=== PATIENT | male | born 1955 | race Caucasian/White ===

== ENCOUNTER 2017-11-14 16:44 | Inpatient (IN) | payer MEDICAID, OTHER ==
[~2017-11-14] VITALS: Ht 172.7 cm; Wt 70.3 kg
[2017-11-14 18:56] LABS: Hemoglobin 13.7 g/dL (13.5-17.5); White Blood Cell 3.2 10^3/uL (4.4-10.8)
[2017-11-14 18:58] LABS: Hematocrit 40.9 % (41.0-53.0); Mean Corpuscular Hemoglobin 26.6 pg (28.0-32.0); Mean Corpuscular Hgb Conc. 33.5 g/dL (32.0-36.0); Mean Corpuscular Volume 79.4 fL (80.0-100.0); Platelet Count (auto) 194 10^3/uL (140-450); Red Blood Cells 5.16 10^6/uL (4.5-5.90); Red Cell Distribution Width 17.1 % (11.8-14.3)
[2017-11-14 19:11] LABS: Alanine Aminotransferase 28 U/L (16-61); Albumin 3.5 g/dL (3.4-5.0); Anion Gap 9 (5-15); Aspartate Aminotransferase 48 U/L (15-37); BUN/Creatinine Ratio 13.5; Band Neutrophils % (manual) 0; Basophils % (manual) 0 (0.0-2.0); Blast Cells 0; Blood Urea Nitrogen 15 mg/dL (7-18); Calcium 8.4 mg/dL (8.5-10.1); Carbon Dioxide 24 mmol/L (21-32); Chloride 101 mmol/L (98-107); Eosinophils % (manual) 0 (0-7); GFR African American 87 mL/min; GFR Non-African American 72 mL/min; Glucose 158 mg/dL (74-106); Magnesium 2.5 mg/dL (1.6-2.6); Metamyelocytes % 0; Myelocytes % 0; Potassium 3.5 mmol/L (3.5-5.1); Promyelocytes % 0; Reactive Lymphocytes 0; Sodium 134 mmol/L (136-145)
[2017-11-14 19:16] LABS: Alkaline Phosphatase 98 U/L (45-117); Bilirubin, Total 0.5 mg/dL (0.2-1.0); Total Protein 7.7 g/dL (6.4-8.2)
[2017-11-14 21:38] LABS: Lymphocytes % (manual) 43 (10.0-50.0); Monocytes % (manual) 21 (0-12)
[2017-11-15] MEDS ORDERED: ACETAMINOPHEN 500 MG TAB PO PRN (04:45)
[2017-11-15] MEDS ORDERED: ONDANSETRON HCL 4 MG/2 ML VIAL IV PRN (04:45)
[2017-11-15] MEDS ORDERED: DEXTROSE (50%) 50ML SYRG IV PRN (07:30)
[2017-11-15 09:27] LABS: Basophils # (auto) 0.1 uL; Eosinophils # (auto) 0 uL; Lymphocytes # (auto) 1.3 uL; Monocytes # (auto) 0.7 uL; Neutrophils # (auto) 5.1 uL; White Blood Cell 7.2 10^3/uL (4.4-10.8)
[2017-11-15 09:29] LABS: Hemoglobin 14.4 g/dL (13.5-17.5); Lymphocytes % (auto) 18.4 % (10.0-50.0); Mean Corpuscular Hemoglobin 26.9 pg (28.0-32.0); Mean Corpuscular Hgb Conc. 34.2 g/dL (32.0-36.0); Mean Corpuscular Volume 78.6 fL (80.0-100.0); Monocytes % (auto) 9.7 % (0.0-12.0); Neutrophils % (auto) 70.9 % (37.0-80.0); Nucleated Red Blood Cells % 0.1 %; Platelet Count (auto) 192 10^3/uL (140-450); Red Blood Cells 5.34 10^6/uL (4.5-5.90); Red Cell Distribution Width 16.9 % (11.8-14.3)
[2017-11-15] MEDS: ASPirin-EC 81 mg tab PO SCH (10:00)
[2017-11-15] MEDS: LISINOPRIL 5 MG TAB PO SCH (10:00)
[2017-11-15 10:11] LABS: BUN/Creatinine Ratio 15.7; Calcium 8.5 mg/dL (8.5-10.1); Potassium 3.9 mmol/L (3.5-5.1)
[2017-11-15] MEDS: InsuLIN REG 1unit/0.01ml Soln (100units/ml) SC SCH ×3 (12:00→21:58)
[2017-11-15] MEDS: ACCU-CHEK COMFORT CURVE STRIP VI SCH ×3 (12:08→21:58)
[2017-11-15 14:25] VITALS: BP 140/81
[2017-11-15 16:18] VITALS: BP 140/81
[2017-11-15] MEDS ORDERED: INFLUENZA QUAD 2017-2018 0.5 ML SYRG IM ONE (16:30)
[2017-11-15] MEDS ORDERED: PNEUMOCOCCAL VACC POLYS 25 MCG/0.5 ML VIAL IM ONE (16:30)
[2017-11-15] MEDS: HYDROcodone-ACET 5/325MG TAB PO PRN (16:34)
[2017-11-15 16:48] VITALS: BP 136/59
[2017-11-15] MEDS: ATORVASTATIN 20 MG TAB PO SCH (21:58)
[2017-11-15 22:00] VITALS: BP 128/71
[2017-11-16 05:00] VITALS: BP 149/103
[2017-11-16] MEDS: ACCU-CHEK COMFORT CURVE STRIP VI SCH ×4 (06:16→22:15)
[2017-11-16] MEDS: InsuLIN REG 1unit/0.01ml Soln (100units/ml) SC SCH ×4 (06:16→22:15)
[2017-11-16 08:37] VITALS: BP 138/74
[2017-11-16] MEDS: ASPirin-EC 81 mg tab PO SCH (10:48)
[2017-11-16] MEDS: LISINOPRIL 5 MG TAB PO SCH (10:49)
[2017-11-16 17:12] VITALS: BP 149/77
[2017-11-16] MEDS: ATORVASTATIN 20 MG TAB PO SCH (22:14)
[2017-11-17] MEDS: HYDROcodone-ACET 5/325MG TAB PO PRN ×2 (00:21→18:10)
[2017-11-17 05:15] VITALS: BP 116/64
[2017-11-17] MEDS: ACCU-CHEK COMFORT CURVE STRIP VI SCH ×4 (06:33→22:08)
[2017-11-17] MEDS: InsuLIN REG 1unit/0.01ml Soln (100units/ml) SC SCH ×4 (06:33→22:00)
[2017-11-17 08:49] LABS: Urine Blood Negative /uL (Negative)
[2017-11-17 08:51] LABS: Urine Bacteria None Seen /hpf (None Seen); Urine WBC None Seen /hpf (0 - 3)
[2017-11-17 09:00] VITALS: BP 133/74
[2017-11-17] MEDS: ASPirin-EC 81 mg tab PO SCH (09:48)
[2017-11-17] MEDS: LISINOPRIL 5 MG TAB PO SCH (09:49)
[2017-11-17 13:00] VITALS: BP 133/75
[2017-11-17 18:39] VITALS: BP 144/74
[2017-11-17] MEDS ORDERED: LORazepam 2MG/ML-1ML VIAL IV PRN (18:45)
[2017-11-17 22:00] VITALS: BP 135/82
[2017-11-17] MEDS: ATORVASTATIN 20 MG TAB PO SCH (22:08)
[2017-11-18 05:18] VITALS: BP 135/75
[2017-11-18] MEDS: InsuLIN REG 1unit/0.01ml Soln (100units/ml) SC SCH ×4 (06:19→21:04)
[2017-11-18] MEDS: ACCU-CHEK COMFORT CURVE STRIP VI SCH ×4 (06:19→21:04)
[2017-11-18 09:00] VITALS: BP 133/57
[2017-11-18] MEDS: ASPirin-EC 81 mg tab PO SCH (11:52)
[2017-11-18] MEDS: LISINOPRIL 5 MG TAB PO SCH (11:53)
[2017-11-18 13:00] VITALS: BP 147/75
[2017-11-18 17:00] VITALS: BP 129/71
[2017-11-18] MEDS: ATORVASTATIN 20 MG TAB PO SCH (21:05)
[2017-11-18 22:00] VITALS: BP 136/71
[2017-11-18] MEDS ORDERED: TEMAZEPAM 15 MG CAP PO ONE (23:00)
[2017-11-19 05:00] VITALS: BP 141/72
[2017-11-19 06:24] LABS: Cholesterol 153 mg/dL (< 200); HDL Cholesterol 29 mg/dL (40-59); LDL Cholesterol 106 mg/dL (< 100); Triglycerides 157 mg/dL (< 150)
[2017-11-19 09:00] VITALS: BP 141/76
[2017-11-19] MEDS: ASPirin-EC 81 mg tab PO SCH (11:22)
[2017-11-19] MEDS: LISINOPRIL 5 MG TAB PO SCH (11:23)
[2017-11-19] MEDS: ACCU-CHEK COMFORT CURVE STRIP VI SCH (11:29)
[2017-11-19] MEDS: InsuLIN REG 1unit/0.01ml Soln (100units/ml) SC SCH (11:30)
[2017-11-19 12:43] VITALS: BP 141/76
[2017-11-19 13:00] VITALS: BP 138/74
[2017-11-19 13:13] VITALS: BP 138/74
[2017-11-19 17:00] VITALS: BP 126/71
== END 2017-11-19 19:50 | disposition home or self-care (01) | DRG 45 ==
LOC: ER 16:44 → OVERFLOW 16:47 → WEST WING 11-15 13:59
PROVIDERS: ADMIT Nurse Practitioner Family; ATTEND Internal Medicine
DX: I63.9 Cerebral infarction, unspecified (principal); E11.21 Type 2 diabetes mellitus with diabetic nephropathy; E11.65 Type 2 diabetes mellitus with hyperglycemia; N18.2 Chronic kidney disease, stage 2 (mild); I12.9 Hypertensive chronic kidney disease with stage 1 through stage 4 chronic kidney disease, or unspecified chronic kidney disease; E87.1 Hypo-osmolality and hyponatremia; G81.94 Hemiplegia, unspecified affecting left nondominant side; E11.22 Type 2 diabetes mellitus with diabetic chronic kidney disease; E78.5 Hyperlipidemia, unspecified; Z79.82 Long term (current) use of aspirin; Z79.899 Other long term (current) drug therapy; Z87.891 Personal history of nicotine dependence; Z82.49 Family history of ischemic heart disease and other diseases of the circulatory system; Z83.3 Family history of diabetes mellitus; Z23 Encounter for immunization
CPT/HCPCS: 36415; 70450; 70551; 71046; 80048; 80053; 80061; 81001; 82962; 83036; 83735; 84484; 85007; 85025; 85027; 85379; 93005; 93306; 93886; 93971; 97163; J1815

== ENCOUNTER 2021-07-09 17:57 | Inpatient (IN) | payer MEDICARE, MEDICAID ==
[~2021-07-09] VITALS: Ht 175.3 cm; Wt 78.0 kg
[2021-07-09 20:01] LABS: Basophils # (auto) 0.1 10 ^3/uL (0-0.2); Basophils % (auto) 1.2 % (0.0-2.0); Eosinophils # (auto) 0 10 ^3/uL (0-0.8); Eosinophils % (auto) 0.4 % (0.0-7.0); Hematocrit 42.9 % (41.0-53.0); Hemoglobin 14.3 g/dL (13.5-17.5); Lymphocytes # (auto) 1.2 10 ^3/uL (0.4-5.4); Lymphocytes % (auto) 27.9 % (10.0-50.0); Mean Corpuscular Hemoglobin 27.8 pg (28.0-32.0); Mean Corpuscular Hgb Conc. 33.3 g/dL (32.0-36.0); Mean Corpuscular Volume 83.4 fL (80.0-100.0); Monocytes # (auto) 0.7 10 ^3/uL (0-1.3); Monocytes % (auto) 17.7 % (0.0-12.0); Neutrophils # (auto) 2.2 10 ^3/uL (1.6-8.6); Neutrophils % (auto) 52.8 % (37.0-80.0); Nucleated Red Blood Cells % 0.1 %; Red Blood Cells 5.14 10^6/uL (4.5-5.90); Red Cell Distribution Width 15.2 % (11.8-14.3); White Blood Cell 4.2 10^3/uL (4.4-10.8)
[2021-07-09 20:17] LABS: Chloride 108 mmol/L (98-107); Potassium 3.5 mmol/L (3.5-5.1); Sodium 138 mmol/L (136-145)
[2021-07-09 20:22] LABS: Alanine Aminotransferase 41 U/L (16-61); Albumin 3.7 g/dL (3.4-5.0); Anion Gap 7 (5-15); Aspartate Aminotransferase 20 U/L (15-37); BUN/Creatinine Ratio 21.1; Blood Urea Nitrogen 27 mg/dL (7-18); Calcium 8.4 mg/dL (8.5-10.1); Carbon Dioxide 23 mmol/L (21-32); GFR African American 73 mL/min; GFR Non-African American 60 mL/min; Glucose 69 mg/dL (74-106)
[2021-07-09 20:26] LABS: Alkaline Phosphatase 65 U/L (45-117); Bilirubin, Total 0.3 mg/dL (0.2-1.0)
[2021-07-09] MEDS ORDERED: ACETAMINOPHEN 500 MG TAB PO ONE (20:45)
[2021-07-09 23:17] LABS: Urine Bacteria MOD /hpf (None Seen); Urine Blood Negative /uL (Negative); Urine Mucus FEW (None Seen); Urine Specific Gravity 1.024 (1.001-1.035); Urine Sperm PRESENT /hpf (None Seen); Urine WBC 43 /hpf (0 - 3)
[2021-07-10] MEDS ORDERED: IOHEXOL 350 MG/ML 100ML IJ ONE (02:12)
[2021-07-10] MEDS ORDERED: cefTRIAXone 1GM/50ML D5W 50 ML IV ONE (02:15)
[2021-07-10] MEDS ORDERED: ONDANSETRON HCL 4 MG/2 ML VIAL IV PRN (05:00)
[2021-07-10] MEDS: PANTOPRAZOLE 40 MG TAB PO SCH (08:18)
[2021-07-10] MEDS: ENOXAPARIN SOD 40 MG/0.4 ML SYRINGE SC SCH (08:18)
[2021-07-10] MEDS: TEMAZEPAM 15 MG CAP PO PRN (20:40)
[2021-07-10] MEDS: cefTRIAXone 1GM/50ML D5W 50 ML IV SCH (20:40)
[2021-07-10] MEDS: ACETAMINOPHEN 325 MG TAB PO PRN (20:41)
[2021-07-10 22:00] VITALS: BP 140/63
[2021-07-11 07:28] LABS: Basophils # (auto) 0.1 10 ^3/uL (0-0.2); Basophils % (auto) 1.3 % (0.0-2.0); Eosinophils # (auto) 0.1 10 ^3/uL (0-0.8); Eosinophils % (auto) 2.1 % (0.0-7.0); Hematocrit 43.8 % (41.0-53.0); Hemoglobin 14.6 g/dL (13.5-17.5); Lymphocytes # (auto) 1.6 10 ^3/uL (0.4-5.4); Lymphocytes % (auto) 41.5 % (10.0-50.0); Mean Corpuscular Hemoglobin 28.3 pg (28.0-32.0); Mean Corpuscular Hgb Conc. 33.5 g/dL (32.0-36.0); Mean Corpuscular Volume 84.5 fL (80.0-100.0); Monocytes # (auto) 0.6 10 ^3/uL (0-1.3); Monocytes % (auto) 14.8 % (0.0-12.0); Neutrophils # (auto) 1.5 10 ^3/uL (1.6-8.6); Neutrophils % (auto) 40.3 % (37.0-80.0); Nucleated Red Blood Cells % 0.2 %; Red Blood Cells 5.18 10^6/uL (4.5-5.90); White Blood Cell 3.8 10^3/uL (4.4-10.8)
[2021-07-11 08:18] LABS: Potassium 4.1 mmol/L (3.5-5.1)
[2021-07-11 08:44] LABS: Albumin 3.1 g/dL (3.4-5.0); BUN/Creatinine Ratio 19.8; Calcium 8.5 mg/dL (8.5-10.1)
[2021-07-11 08:50] LABS: Bilirubin, Total 0.3 mg/dL (0.2-1.0); Total Protein 7.2 g/dL (6.4-8.2)
[2021-07-11 08:52] VITALS: BP 134/77
[2021-07-11] MEDS: PANTOPRAZOLE 40 MG TAB PO SCH (09:48)
[2021-07-11] MEDS: ENOXAPARIN SOD 40 MG/0.4 ML SYRINGE SC SCH (09:48)
[2021-07-11] MEDS: ACETAMINOPHEN 325 MG TAB PO PRN (10:28)
[2021-07-11] MEDS ORDERED: AML5T PO (13:57)
[2021-07-11 17:59] VITALS: BP 139/69
[2021-07-11] MEDS: cefTRIAXone 1GM/50ML D5W 50 ML IV SCH (21:00)
[2021-07-11] MEDS: HYDROcodone-ACET 5/325MG TAB PO PRN (21:15)
[2021-07-11 22:00] VITALS: BP 140/63
[2021-07-11 23:12] LABS: Alcohol, Urine < 3.0 mg/dL (0-10); Amphetamine Screen, Urine NEGATIVE (NEGATIVE); Barbiturate Scree,Urine NEGATIVE (NEGATIVE); Benzodiazephine Screen, Urine NEGATIVE (NEGATIVE); Cannabinoid Screen, Urine NEGATIVE (NEGATIVE); Cocaine Screen, Urine NEGATIVE (NEGATIVE); Opiate Scree,Urine NEGATIVE (NEGATIVE); Phencyclidine Screen, Urine NEGATIVE (NEGATIVE)
[2021-07-12 05:00] VITALS: BP 140/68
[2021-07-12 06:23] LABS: Potassium 3.9 mmol/L (3.5-5.1)
[2021-07-12 06:39] LABS: BUN/Creatinine Ratio 21.6; Calcium 7.9 mg/dL (8.5-10.1); Magnesium 2.5 mg/dL (1.6-2.6)
[2021-07-12 07:02] LABS: Basophils # (auto) 0 10 ^3/uL (0-0.2); Basophils % (auto) 1.1 % (0.0-2.0); Eosinophils # (auto) 0 10 ^3/uL (0-0.8); Eosinophils % (auto) 0.9 % (0.0-7.0); Hemoglobin 13.6 g/dL (13.5-17.5); Lymphocytes # (auto) 1.7 10 ^3/uL (0.4-5.4); Lymphocytes % (auto) 54.6 % (10.0-50.0); Mean Corpuscular Hemoglobin 27.6 pg (28.0-32.0); Mean Corpuscular Hgb Conc. 33.2 g/dL (32.0-36.0); Mean Corpuscular Volume 83.1 fL (80.0-100.0); Monocytes # (auto) 0.4 10 ^3/uL (0-1.3); Monocytes % (auto) 13.6 % (0.0-12.0); Neutrophils # (auto) 0.9 10 ^3/uL (1.6-8.6); Neutrophils % (auto) 29.8 % (37.0-80.0); Nucleated Red Blood Cells % 0.4 %; Red Blood Cells 4.94 10^6/uL (4.5-5.90); Red Cell Distribution Width 14.8 % (11.8-14.3); White Blood Cell 3.1 10^3/uL (4.4-10.8)
[2021-07-12] MEDS: HYDROcodone-ACET 5/325MG TAB PO PRN (09:59)
[2021-07-12] MEDS: PANTOPRAZOLE 40 MG TAB PO SCH (09:59)
[2021-07-12] MEDS: ENOXAPARIN SOD 40 MG/0.4 ML SYRINGE SC SCH (09:59)
[2021-07-12] MEDS ORDERED: ERGOCALCIFEROL 50,000 UNIT(1.25MG) CAP PO SCH (13:15)
[2021-07-12] MEDS: cefTRIAXone 1GM/50ML D5W 50 ML IV SCH (20:37)
[2021-07-12] MEDS: ATORVASTATIN 20 MG TAB PO SCH (20:37)
[2021-07-12 22:00] VITALS: BP 135/74
[2021-07-12] MEDS: ACETAMINOPHEN 325 MG TAB PO PRN (22:00)
[2021-07-13 05:00] VITALS: BP 151/85
[2021-07-13 07:34] LABS: BUN/Creatinine Ratio 20.2; Potassium 4.1 mmol/L (3.5-5.1)
[2021-07-13 08:00] VITALS: BP 124/62
[2021-07-13] MEDS: PANTOPRAZOLE 40 MG TAB PO SCH (10:35)
[2021-07-13] MEDS: ASPirin 81 mg TAB PO SCH (10:35)
[2021-07-13] MEDS: CHOLECALCIFEROL (VITD3) 2,000 UNIT CAP/TAB PO SCH (10:36)
[2021-07-13] MEDS: ENOXAPARIN SOD 40 MG/0.4 ML SYRINGE SC SCH (10:36)
[2021-07-13 13:00] VITALS: BP 136/69
[2021-07-13] MEDS: ACETAMINOPHEN 325 MG TAB PO PRN (17:14)
[2021-07-13 17:54] VITALS: BP 138/73
[2021-07-13] MEDS: cefTRIAXone 1GM/50ML D5W 50 ML IV SCH (20:24)
[2021-07-13] MEDS: HYDROcodone-ACET 5/325MG TAB PO PRN (20:25)
[2021-07-13] MEDS: ATORVASTATIN 20 MG TAB PO SCH (20:25)
[2021-07-13] MEDS: ALBUTEROL SULF HFA 90MCG INH 200DOSE IN PRN (20:36)
[2021-07-13 22:00] VITALS: BP 138/79
[2021-07-14 05:00] VITALS: BP 147/116
[2021-07-14] MEDS: ACETAMINOPHEN 325 MG TAB PO PRN (06:13)
[2021-07-14 06:51] LABS: Basophils # (auto) 0 10 ^3/uL (0-0.2); Basophils % (auto) 1.2 % (0.0-2.0); Eosinophils # (auto) 0.1 10 ^3/uL (0-0.8); Eosinophils % (auto) 2.3 % (0.0-7.0); Hematocrit 40.8 % (41.0-53.0); Hemoglobin 14.3 g/dL (13.5-17.5); Lymphocytes # (auto) 1.1 10 ^3/uL (0.4-5.4); Lymphocytes % (auto) 40.6 % (10.0-50.0); Mean Corpuscular Hemoglobin 28.9 pg (28.0-32.0); Mean Corpuscular Hgb Conc. 34.9 g/dL (32.0-36.0); Mean Corpuscular Volume 82.8 fL (80.0-100.0); Monocytes # (auto) 0.3 10 ^3/uL (0-1.3); Monocytes % (auto) 10.6 % (0.0-12.0); Neutrophils # (auto) 1.2 10 ^3/uL (1.6-8.6); Neutrophils % (auto) 45.3 % (37.0-80.0); Nucleated Red Blood Cells % 0.4 %; Red Blood Cells 4.93 10^6/uL (4.5-5.90); Red Cell Distribution Width 14.5 % (11.8-14.3); White Blood Cell 2.7 10^3/uL (4.4-10.8)
[2021-07-14 09:00] VITALS: BP 140/64
[2021-07-14] MEDS ORDERED: REMDESIVIR PER PHARMACY 0 ML IV SCH (09:30)
[2021-07-14] MEDS ORDERED: REMDESIVIR 200 MG in NS 210ml LOADING DOSE ADULT IV ONE (09:45)
[2021-07-14] MEDS: PANTOPRAZOLE 40 MG TAB PO SCH (09:57)
[2021-07-14] MEDS: CHOLECALCIFEROL (VITD3) 2,000 UNIT CAP/TAB PO SCH (09:57)
[2021-07-14] MEDS: ENOXAPARIN SOD 40 MG/0.4 ML SYRINGE SC SCH ×2 (09:57→22:14)
[2021-07-14] MEDS: DexAMETHasone SOD PHOS 10MG/1ML VIAL INJ IV SCH (09:58)
[2021-07-14] MEDS: ASPirin 81 mg TAB PO SCH (09:58)
[2021-07-14] MEDS: ZINC SULFATE 220mg CAP or TAB PO SCH (09:58)
[2021-07-14] MEDS ORDERED: CHOLECALCIFEROL (VITD3) 2,000 UNIT CAP/TAB PO SCH (10:00)
[2021-07-14] MEDS ORDERED: DOXYCYCLINE 100MG/250ML 250 ML IV ONE (11:30)
[2021-07-14] MEDS ORDERED: ACETAMINOPHEN 500 MG TAB PO PRN (11:45)
[2021-07-14 13:00] VITALS: BP 124/63
[2021-07-14] MEDS: ASCORBIC ACID 1,000 MG TAB PO SCH (14:37)
[2021-07-14 17:00] VITALS: BP 137/64
[2021-07-14] MEDS: HYDROcodone-ACET 5/325MG TAB PO PRN (20:36)
[2021-07-14 22:00] VITALS: BP 147/76
[2021-07-14] MEDS: BUDESONIDE (INHALATION) 180 MCG IH IN SCH (22:00)
[2021-07-14] MEDS: TEMAZEPAM 15 MG CAP PO PRN (22:14)
[2021-07-14] MEDS: ATORVASTATIN 20 MG TAB PO SCH (22:14)
[2021-07-14] MEDS: DOXYCYCLINE 100MG/250ML 250 ML IV SCH (23:26)
[2021-07-15 05:00] VITALS: BP 136/72
[2021-07-15 06:21] LABS: Basophils # (auto) 0 10 ^3/uL (0-0.2); Basophils % (auto) 0.7 % (0.0-2.0); Eosinophils # (auto) 0 10 ^3/uL (0-0.8); Eosinophils % (auto) 0.1 % (0.0-7.0); Hematocrit 41.7 % (41.0-53.0); Lymphocytes # (auto) 1.2 10 ^3/uL (0.4-5.4); Mean Corpuscular Hemoglobin 28.1 pg (28.0-32.0); Mean Corpuscular Hgb Conc. 33.5 g/dL (32.0-36.0); Mean Corpuscular Volume 83.9 fL (80.0-100.0); Monocytes # (auto) 0.3 10 ^3/uL (0-1.3); Monocytes % (auto) 11.6 % (0.0-12.0); Neutrophils # (auto) 1.3 10 ^3/uL (1.6-8.6); Neutrophils % (auto) 45.6 % (37.0-80.0); Nucleated Red Blood Cells % 0.3 %; Red Blood Cells 4.96 10^6/uL (4.5-5.90); Red Cell Distribution Width 14.5 % (11.8-14.3); White Blood Cell 2.8 10^3/uL (4.4-10.8)
[2021-07-15 06:32] LABS: Albumin 2.7 g/dL (3.4-5.0); Potassium 4.2 mmol/L (3.5-5.1)
[2021-07-15 06:36] LABS: BUN/Creatinine Ratio 19.4; Bilirubin, Total 0.3 mg/dL (0.2-1.0); Total Protein 6.6 g/dL (6.4-8.2)
[2021-07-15] MEDS: BUDESONIDE (INHALATION) 180 MCG IH IN SCH ×2 (06:54→22:00)
[2021-07-15] MEDS: ALBUTEROL SULF HFA 90MCG INH 200DOSE IN PRN ×2 (06:54→22:38)
[2021-07-15] MEDS ORDERED: IVERMECTIN 3 MG TAB PO SCH (07:00)
[2021-07-15 07:03] LABS: INR 1.02 (0.9-1.15)
[2021-07-15 09:00] VITALS: BP 142/74
[2021-07-15] MEDS: ASPirin 81 mg TAB PO SCH (10:20)
[2021-07-15] MEDS: ENOXAPARIN SOD 40 MG/0.4 ML SYRINGE SC SCH (10:20)
[2021-07-15] MEDS: ZINC SULFATE 220mg CAP or TAB PO SCH (10:21)
[2021-07-15] MEDS: CHOLECALCIFEROL (VITD3) 2,000 UNIT CAP/TAB PO SCH (10:21)
[2021-07-15] MEDS: FLORASTOR (S. BOULARDII) 250 MG CAP PO SCH (10:21)
[2021-07-15] MEDS: PANTOPRAZOLE 40 MG TAB PO SCH (10:21)
[2021-07-15] MEDS: ASCORBIC ACID 1,000 MG TAB PO SCH (10:21)
[2021-07-15] MEDS: DOXYCYCLINE 100MG/250ML 250 ML IV SCH ×2 (12:28→23:07)
[2021-07-15] MEDS: DexAMETHasone SOD PHOS 10MG/1ML VIAL INJ IV SCH (12:29)
[2021-07-15 13:00] VITALS: BP 125/68
[2021-07-15] MEDS: REMDESIVIR 100mg 100 MG in SODIUM CHL 0.9% 230 ML IV SCH (15:38)
[2021-07-15 17:00] VITALS: BP 141/89
[2021-07-15 22:00] VITALS: BP 140/67
[2021-07-15] MEDS: ATORVASTATIN 20 MG TAB PO SCH (23:07)
[2021-07-16] MEDS: HYDROcodone-ACET 5/325MG TAB PO PRN (04:10)
[2021-07-16 05:00] VITALS: BP 135/74
[2021-07-16 09:00] VITALS: BP 131/70
[2021-07-16] MEDS: DexAMETHasone SOD PHOS 10MG/1ML VIAL INJ IV SCH (09:09)
[2021-07-16] MEDS: ASPirin 81 mg TAB PO SCH (09:09)
[2021-07-16] MEDS: CHOLECALCIFEROL (VITD3) 2,000 UNIT CAP/TAB PO SCH (09:10)
[2021-07-16] MEDS: PANTOPRAZOLE 40 MG TAB PO SCH (09:10)
[2021-07-16] MEDS: FLORASTOR (S. BOULARDII) 250 MG CAP PO SCH (09:10)
[2021-07-16] MEDS: ZINC SULFATE 220mg CAP or TAB PO SCH (09:10)
[2021-07-16] MEDS: ASCORBIC ACID 1,000 MG TAB PO SCH (09:10)
[2021-07-16] MEDS: ENOXAPARIN SOD 40 MG/0.4 ML SYRINGE SC SCH (09:11)
[2021-07-16 10:11] LABS: Anion Gap 9 (5-15); Blood Urea Nitrogen 23 mg/dL (7-18); Carbon Dioxide 19 mmol/L (21-32); Chloride 108 mmol/L (98-107); Glucose 211 mg/dL (74-106); Potassium 4.2 mmol/L (3.5-5.1); Sodium 136 mmol/L (136-145)
[2021-07-16 10:12] LABS: Alanine Aminotransferase 95 U/L (16-61); Albumin 2.8 g/dL (3.4-5.0); Alkaline Phosphatase 54 U/L (45-117); Aspartate Aminotransferase 65 U/L (15-37); Bilirubin, Total 0.2 mg/dL (0.2-1.0); Calcium 8.3 mg/dL (8.5-10.1); GFR African American 101 mL/min; GFR Non-African American 84 mL/min; Total Protein 6.8 g/dL (6.4-8.2)
[2021-07-16] MEDS: BUDESONIDE (INHALATION) 180 MCG IH IN SCH ×2 (11:35→21:55)
[2021-07-16] MEDS: ALBUTEROL SULF HFA 90MCG INH 200DOSE IN PRN ×2 (11:35→21:55)
[2021-07-16] MEDS: DOXYCYCLINE 100MG/250ML 250 ML IV SCH ×2 (12:22→22:39)
[2021-07-16 13:00] VITALS: BP 136/70
[2021-07-16] MEDS: REMDESIVIR 100mg 100 MG in SODIUM CHL 0.9% 230 ML IV SCH (15:52)
[2021-07-16 17:00] VITALS: BP 143/75
[2021-07-16 22:07] VITALS: BP 146/79
[2021-07-16] MEDS: ATORVASTATIN 20 MG TAB PO SCH (22:39)
[2021-07-17 05:45] VITALS: BP 143/81
[2021-07-17 07:11] LABS: Albumin 2.8 g/dL (3.4-5.0); Calcium 8.1 mg/dL (8.5-10.1); Potassium 4.4 mmol/L (3.5-5.1)
[2021-07-17 07:16] LABS: Bilirubin, Total 0.3 mg/dL (0.2-1.0); Total Protein 6.4 g/dL (6.4-8.2)
[2021-07-17] MEDS: ALBUTEROL SULF HFA 90MCG INH 200DOSE IN PRN ×2 (07:22→21:27)
[2021-07-17] MEDS: BUDESONIDE (INHALATION) 180 MCG IH IN SCH ×2 (07:22→21:27)
[2021-07-17 08:00] VITALS: BP 121/73
[2021-07-17] MEDS: ASPirin 81 mg TAB PO SCH (08:28)
[2021-07-17] MEDS: DexAMETHasone SOD PHOS 10MG/1ML VIAL INJ IV SCH (08:28)
[2021-07-17] MEDS: ZINC SULFATE 220mg CAP or TAB PO SCH (08:28)
[2021-07-17] MEDS: FLORASTOR (S. BOULARDII) 250 MG CAP PO SCH (08:29)
[2021-07-17] MEDS: CHOLECALCIFEROL (VITD3) 2,000 UNIT CAP/TAB PO SCH (08:29)
[2021-07-17] MEDS: PANTOPRAZOLE 40 MG TAB PO SCH (08:29)
[2021-07-17] MEDS: ASCORBIC ACID 1,000 MG TAB PO SCH (08:29)
[2021-07-17] MEDS: ENOXAPARIN SOD 40 MG/0.4 ML SYRINGE SC SCH (08:30)
[2021-07-17 12:00] VITALS: BP 142/75
[2021-07-17] MEDS: DOXYCYCLINE 100MG/250ML 250 ML IV SCH ×2 (12:12→23:44)
[2021-07-17] MEDS: REMDESIVIR 100mg 100 MG in SODIUM CHL 0.9% 230 ML IV SCH (15:49)
[2021-07-17] MEDS: HYDROcodone-ACET 5/325MG TAB PO PRN (15:59)
[2021-07-17 16:00] VITALS: BP 143/88
[2021-07-17] MEDS: ATORVASTATIN 20 MG TAB PO SCH (21:37)
[2021-07-17 22:00] VITALS: BP 144/68
[2021-07-18 05:00] VITALS: BP 146/84
[2021-07-18 08:43] VITALS: BP 136/83
[2021-07-18] MEDS: ASCORBIC ACID 1,000 MG TAB PO SCH (09:15)
[2021-07-18] MEDS: ZINC SULFATE 220mg CAP or TAB PO SCH (09:15)
[2021-07-18] MEDS: ASPirin 81 mg TAB PO SCH (09:15)
[2021-07-18] MEDS: FLORASTOR (S. BOULARDII) 250 MG CAP PO SCH (09:15)
[2021-07-18] MEDS: PANTOPRAZOLE 40 MG TAB PO SCH (09:15)
[2021-07-18] MEDS: DexAMETHasone SOD PHOS 10MG/1ML VIAL INJ IV SCH (09:15)
[2021-07-18] MEDS: CHOLECALCIFEROL (VITD3) 2,000 UNIT CAP/TAB PO SCH (09:15)
[2021-07-18 09:26] LABS: Basophils # (auto) 0 10 ^3/uL (0-0.2); Basophils % (auto) 0.4 % (0.0-2.0); Eosinophils # (auto) 0 10 ^3/uL (0-0.8); Eosinophils % (auto) 0.1 % (0.0-7.0); Hemoglobin 15.7 g/dL (13.5-17.5); Lymphocytes # (auto) 2.6 10 ^3/uL (0.4-5.4); Lymphocytes % (auto) 29.8 % (10.0-50.0); Mean Corpuscular Hemoglobin 28.4 pg (28.0-32.0); Mean Corpuscular Volume 83.6 fL (80.0-100.0); Monocytes % (auto) 11.8 % (0.0-12.0); Neutrophils % (auto) 57.9 % (37.0-80.0); Red Cell Distribution Width 14.8 % (11.8-14.3); White Blood Cell 8.7 10^3/uL (4.4-10.8)
[2021-07-18 09:49] LABS: Albumin 3.2 g/dL (3.4-5.0); Calcium 8.7 mg/dL (8.5-10.1); Magnesium 2.1 mg/dL (1.6-2.6); Potassium 4.3 mmol/L (3.5-5.1)
[2021-07-18 09:54] LABS: BUN/Creatinine Ratio 25.8; Bilirubin, Direct 0.2 mg/dL (0-0.2); Bilirubin, Total 0.4 mg/dL (0.2-1.0); CRP High Sensitivity 0.06 mg/dL (< 0.3); Total Protein 7.4 g/dL (6.4-8.2)
[2021-07-18] MEDS ORDERED: ALBUAER3 IN (10:57)
[2021-07-18] MEDS ORDERED: ASCO10003 PO (10:57)
[2021-07-18] MEDS ORDERED: FAMO20TA10 PO (10:57)
[2021-07-18] MEDS ORDERED: ASPI-378 PO (10:57)
[2021-07-18] MEDS ORDERED: DEX4T PO (10:57)
[2021-07-18] MEDS ORDERED: CHOL20007 PO (10:57)
[2021-07-18] MEDS ORDERED: ZINC220T6 PO (10:57)
[2021-07-18 12:11] VITALS: BP 134/67
[2021-07-18] MEDS: REMDESIVIR 100mg 100 MG in SODIUM CHL 0.9% 230 ML IV SCH (12:50)
[2021-07-18] MEDS: BUDESONIDE (INHALATION) 180 MCG IH IN SCH ×2 (13:59→19:29)
[2021-07-18] MEDS: ALBUTEROL SULF HFA 90MCG INH 200DOSE IN PRN ×2 (13:59→21:21)
[2021-07-18] MEDS: DOXYCYCLINE 100MG/250ML 250 ML IV SCH ×2 (14:15→23:30)
[2021-07-18] MEDS: ENOXAPARIN SOD 40 MG/0.4 ML SYRINGE SC SCH (15:19)
[2021-07-18 17:00] VITALS: BP 137/67
[2021-07-18] MEDS: HYDROcodone-ACET 5/325MG TAB PO PRN (17:09)
[2021-07-18 22:00] VITALS: BP 142/66
[2021-07-18] MEDS: ATORVASTATIN 20 MG TAB PO SCH (22:20)
[2021-07-19 05:00] VITALS: BP 142/96
[2021-07-19] MEDS: BUDESONIDE (INHALATION) 180 MCG IH IN SCH (06:55)
[2021-07-19] MEDS: ALBUTEROL SULF HFA 90MCG INH 200DOSE IN PRN (06:55)
== END 2021-07-19 08:25 | disposition hospice, home (50) | DRG 177 ==
LOC: EDBD 17:57 → EDSEX 17:57 → ER 18:06 → OVERFLOW 07-10 04:57 → WEST WING 07-11 09:01 → EAST 07-13 04:15
PROVIDERS: ADMIT Nurse Practitioner; ATTEND Internal Medicine
PROC: XW033E5 Introduction of Remdesivir Anti-infective into Peripheral Vein, Percutaneous Approach, New Technology Group 5 (ICD-10-PCS; principal; 2021-07-14)
DX: U07.1 COVID-19 (principal); J12.82 Pneumonia due to coronavirus disease 2019; J96.00 Acute respiratory failure, unspecified whether with hypoxia or hypercapnia; A41.89 Other specified sepsis; N39.0 Urinary tract infection, site not specified; R62.7 Adult failure to thrive; N18.30 Chronic kidney disease, stage 3 unspecified; E55.9 Vitamin D deficiency, unspecified; J84.10 Pulmonary fibrosis, unspecified; Z51.5 Encounter for palliative care; Z86.73 Personal history of transient ischemic attack (TIA), and cerebral infarction without residual deficits; Z82.49 Family history of ischemic heart disease and other diseases of the circulatory system; Z68.25 Body mass index [BMI] 25.0-25.9, adult
CPT/HCPCS: 36415; 71045; 71275; 80048; 80053; 80061; 80076; 80307; 81001; 82306; 82550; 82728; 83605; 83615; 83735; 84443; 84484; 85025; 85379; 85610; 86141; 87040; 87086; 87426; 93970; 94640; 96365; 97110; 97116; 97530; G0378; J0696; J1100; J3490